=== PATIENT | male | born 1970 | race American Indian/Alaskan Native ===

== ENCOUNTER 2016-07-07 20:23 | Emergency (ER) | payer BC ==
[2016-07-07 20:47] VITALS: BMI 37.8
[2016-07-07] MEDS ORDERED: Amoxicillin-Clav 875-125 mg Tab PO STA (21:28)
--- NOTE | 2016-07-07 21:32 | ED PDOC ---
Arrival/HPI - General Chief Complaint: Cough, Cold, Congestion Time Seen by Provider: 07/07/16 21:20 Historian: Patient - History of Present Illness Narrative History of Present Illness (Text): 07/07/16 21:30 46 y/o male, pmh including htn, allergic to codeine, c/o throat pain/coughing/ nasal congestion x 3 days with no recent traveling. aching throat pain, aggravated by swallowing and coughing, nasal congestion with stuffiness, no headache or night sweat, no rash, no numbness or tingling, no chest pain or shortness of breath, no other medical or psychological complaints. Past Medical History - Provider Review Nursing Documentation Reviewed: Yes - Infectious Disease Hx of Infectious Diseases: None - Cardiac Hx Hypertension: Yes - Psychiatric Hx Substance Use: No - Anesthesia Hx Anesthesia: No Family/Social History - Physician Review Nursing Documentation Reviewed: Yes Family/Social History: Unknown Family HX Smoking Status: Never Smoked Hx Alcohol Use: No Hx Substance Use: No Allergies/Home Meds Allergies/Adverse Reactions: Allergies codeine Allergy (Verified 07/07/16 20:47) RASH shellfish derived Allergy (Verified 07/07/16 20:47) RASH Home Medications: Home Meds Medication Instructions Recorded Confirmed Losartan/Hydrochlorothiazide 1 tab PO DAILY 07/07/16 07/07/16 [Losartan-Hctz 100-25 mg Tab] Review of Systems - Review of Systems Constitutional: absent: Fatigue, Fevers Eyes: absent: Vision Changes ENT: Sore Throat, Rhinorrhea, Sinus Congestion. absent: Hearing Changes Respiratory: Cough. absent: SOB, Sputum, Wheezing Cardiovascular: absent: Chest Pain, Palpitations Gastrointestinal: absent: Abdominal Pain, Nausea, Vomiting Skin: absent: Rash, Pruritis, Skin Lesions, Laceration, Abscess, Ulcer Psychiatric: absent: Anxiety, Depression, Suicidal Ideation Physical Exam Vital Signs Reviewed: Yes Vital Signs Temp Pulse Resp BP Pulse Ox 07/07/16 22:57 98 F 75 19 138/74 97 07/07/16 21:27 140/80 07/07/16 20:51 98.4 F 82 18 174/100 H 98 Temperature: Afebrile Blood Pressure: Normal Pulse: Regular Respiratory Rate: Normal Appearance: Positive for: Well-Appearing, Non-Toxic, Comfortable Pain Distress: Moderate Mental Status: Positive for: Alert and Oriented X 3 - Systems Exam Head: Present: Atraumatic, Normocephalic, Other (+ttp on the lt. maxillary sinus region with no facial swelling. ) Pupils: Present: PERRL Extroacular Muscles: Present: EOMI Conjunctiva: Present: Normal Ears: Present: NORMAL TM, Normal Canal. No: Erythema Mouth: Present: Moist Mucous Membranes Pharnyx: No: ERYTHEMA, EXUDATE, TONSILS ENLARGED, Peritonsilar Swelling, Uvular Deviation, Muffled/Hoarse Voice, Strider, Soft Palate/Uvular Edema Nose (External): No: Abrasion, Contusion, Laceration Nose (Internal): Present: Normal Inspection, No Active Bleeding. No: Rhinorrhea , Septal Deviation, Septal Hematoma, Epistaxis Neck: Present: Normal Range of Motion. No: Lymphadenopathy Respiratory/Chest: Present: Clear to Auscultation, Good Air Exchange. No: Respiratory Distress, Accessory Muscle Use, Wheezes, Decreased Breath Sounds, Rales, Retracting, Rhonchi, Tachypneic, Tender to Palpation, Other Cardiovascular: Present: Regular Rate and Rhythm, Normal S1, S2. No: Murmurs Abdomen: Present: Normal Bowel Sounds. No: Tenderness, Distention, Peritoneal Signs Back: Present: Normal Inspection Upper Extremity: Present: Normal Inspection. No: Cyanosis, Edema Lower Extremity: Present: Normal Inspection. No: Edema Neurological: Present: GCS=15, CN II-XII Intact, Speech Normal Skin: Present: Warm, Dry, Normal Color. No: Rashes Lymphatic: No: Cervical Adenopathy Psychiatric: Present: Alert, Oriented x 3, Normal Insight, Normal Concentration Medical Decision Making ED Course and Treatment: 07/07/16 21:32 -chest x-ray show inflammatory airway disease. Room air saturation within normal limit, no wheezing, no indication of the prednisone. -toradol IM/augmentin/benadryl -Discharge home with claritin d24, flonase, augmentin, motrin, stay hydrated, follow up with your own pmd within 2 days, return to the ER for any new or worsening signs or symptoms. - RAD Interpretation Radiology Orders: 07/07/16 21:28 CHEST TWO VIEWS (PA/LAT) [RAD] Stat - Medication Orders Current Medication Orders: Discontinued Medications Amoxicillin/Clavulanate Potassium (Augmentin 875 Mg-125 Mg Tab) 1 tab PO STAT STA PRN Reason: Protocol Stop: 07/07/16 21:29 Last Admin: 07/07/16 21:52 Dose: 1 tab Diphenhydramine HCl (Benadryl) 50 mg PO STAT STA Stop: 07/07/16 21:31 Last Admin: 07/07/16 21:53 Dose: 50 mg Ketorolac Tromethamine (Toradol) 60 mg IM STAT STA Stop: 07/07/16 21:29 Last Admin: 07/07/16 22:02 Dose: 60 mg - PA / [employer] / Resident Statement JEFFREY has reviewed & agrees with the documentation as recorded. Disposition/Present on Arrival - Present on Arrival Any Indicators Present on Arrival: No History of DVT/PE: No History of Uncontrolled Diabetes: No Urinary Catheter: No History of Decub. Ulcer: No History Surgical Site Infection Following: None - Disposition Have Diagnosis and Disposition been Completed?: Yes Diagnosis: Sinusitis Disposition: HOME/ ROUTINE Disposition Time: 21:34 Patient Plan: Discharge Condition: IMPROVED Additional Instructions: Discharge home with claritin d24, flonase, augmentin, motrin, stay hydrated, follow up with your own pmd within 2 days, return to the ER for any new or worsening signs or symptoms. Prescriptions: Amoxicillin/Clavulanate [Augmentin 875 MG-125 MG] 1 tab PO BID #14 tab Fluticasone Nasal [Flonase] 1 spr NS DAILY #1 bot Ibuprofen [Motrin] 600 mg PO QID PRN #24 tab PRN Reason: Other Loratadine/Pseudoephedrine [Claritin-D 24 Hour Tablet] 1 each PO DAILY #7 tab.er.24h Referrals: Dmitry Whitlock DO [Staff Provider] - Follow up with primary [facility] [place] [Outside] - Follow up with primary Forms: WORK NOTE
[2016-07-07 22:58] VITALS: BP 138/74; PULSE 75; RESP 19; TEMP 98; O2SAT 97
--- NOTE | 2016-07-08 06:46 | RAD ---
HISTORY: cough x 3 days COMPARISON: The the TECHNIQUE: Chest PA and lateral FINDINGS: LUNGS: Slight increased coarsened -increased interstitial markings with a few scattered peribronchial cuffing changes. Findings may represent mild reactive and or inflammatory airway disease. PLEURA: No significant pleural effusion identified. No pneumothorax apparent. CARDIOVASCULAR: Normal. OSSEOUS STRUCTURES: Mild multilevel degenerative spondylosis of the thoracic spine. VISUALIZED UPPER ABDOMEN: Normal. OTHER FINDINGS: None. IMPRESSION: Slight increased coarsened -increased interstitial markings with a few scattered peribronchial cuffing changes. Findings may represent mild reactive and or inflammatory airway disease.
== END 2016-07-07 22:58 | disposition home or self-care (01) ==
LOC: ED 20:23
DX: J32.9 Chronic sinusitis, unspecified (principal)
CPT/HCPCS: 71020; 96372; 99283; J1885